=== PATIENT | male | born 1945 | race American Indian/Alaskan Native ===

== ENCOUNTER 2017-01-15 06:22 | Inpatient (IN) | payer MEDICARE, OTHER ==
[2017-01-12 08:49] VITALS: BMI 32.3
[2017-01-15] MEDS ORDERED: Propofol 10 mg/ml Inj (20 ML) ONE (07:39)
[2017-01-15] MEDS ORDERED: Midazolam 2 MG/2 ML VIAL ONE (07:39)
[2017-01-15] MEDS ORDERED: Dexamethasone 4 mg/1 ml ONE (07:44)
[2017-01-15] MEDS ORDERED: ceFAZolin IV 2 gm in Dextrose 50 ML IVPB ONE (07:45)
[2017-01-15] MEDS ORDERED: ceFAZolin 1 gm FROZEN Premix 0 ML IVPB ONE (07:45)
[2017-01-15] MEDS: Bupivacaine HCl 0.5% PF (10 ml) Inj ONE ×3 (08:46→11:59)
[2017-01-15] MEDS ORDERED: Rocuronium 10 mg/ml (5 ml) ONE (09:09)
[2017-01-15] MEDS: HYDROmorphone 0.5 mg/0.5 ml ISec IVP PRN ×2 (11:45→12:45)
--- NOTE | 2017-01-15 12:26 | PCM.SURG1 ---
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 Triple arthrodesis, right foot Specimen/Specimens Removed: None Estimated Blood Loss: EBL {In ML}: 30 Blood Products Given: N/A Drains Used: No Drains Post-Op Condition: Good Date of Surgery/Procedure: 01/15/17 Time of Surgery/Procedure: 07:30
[2017-01-15] MEDS ORDERED: Bupivacaine HCl 0.5% PF (10 ml) Inj ONE ×2 (12:34)
[2017-01-15] MEDS ORDERED: Lactated Ringer's 1,000 ML IV ONE ×3 (12:35→12:50)
--- NOTE | 2017-01-15 12:41 | CP.PCM.PN ---
Subjective - Date & Time of Evaluation Date of Evaluation: 01/15/17 Time of Evaluation: 07:30 - Subjective Subjective: 71 y/o male presents to [facility] for surgical intervention of painful right flatfoot and equinus. Patient has exhausted all conservative treatment and is now requesting surgical intervention. Patient denies any nausea, vomiting, fever and chills. Objective - Vital Signs/Intake and Output Vital Signs (last 24 hours): Temp Pulse Resp BP Pulse Ox 97.8 F 75 20 147/85 99 01/15/17 07:45 01/15/17 07:45 01/15/17 07:45 01/15/17 07:45 01/15/17 07:45 Intake and Output: 01/15/17 01/15/17 06:59 18:59 Intake Total 2049 Balance 2049 - Medications Medications: Current Medications Hydromorphone HCl (Dilaudid) 0.5 mg IVP Q10M PRN PRN Reason: Pain, moderate (4-7) Stop: 01/15/17 14:31 - Additional Findings Additional findings: RLE Vascular: DP and PT pulses palpable 2/4. CT < 3 seconds to all distal digits. Skin temperature is warm to warm from proximal to distal. Pedal hair growth noted to all digits. No erythema noted. Edema noted to dorsal aspect of dorsal aspect of fourth DIPJ. Neuro: Pain sensation intact. Protective sensation intact. Negative Tinels. Derm: No open lesions noted. Hyerkeratotic lesion noted sub 1st metatarsal and sub second metatarsal. Biomech/Musc: Patient presents with rectus shoulders and hips. Patient presents with early heel off and overpronation noted throughout stance to RLE. Early heel off noted to RLE. Ankle joint dorsiflexion is decreased (<5 degrees) with knee extended and increased with knee flexed, consistent with gastrocnemius equinus. No medial longitudinal arch is noted and is not recreated with Hubscher manuever. Eversion of heel is noted with weight bearing with RSCP 8 degrees everted and NCSP 6 degrees everted. Medial talar bulge noted with the forefoot abducted on the rearfoot. STJ ROM is decreased 14:6, Inversion:Eversion with pain. MTJ ROM is decreased with pain. Pain with palpation of posterior tibial tendon from the level of the ankle joint to the insertion at the navicular tuberosity. Patient is unable to perform single heel rise test to right lower extremity. Assessment and Plan - Assessment and Plan (Free Text) Assessment: 71 y/o male presents to [facility] for surgical intervention of painful equinus and pes planus, right Pt was seen and examined in [facility]. Biomechanical performed. Pt NPO status was confirmed. All Pre-op testing and clearance was in the chart. Pt has exhausted all conservative treatment at this time and is opting for surgical intervention. Pt was explained procedure and post-operative course. All pt's questions were answered to satisfaction. No guarantees were made. Pt understands all risks, benefits and complications of procedure. Pt will follow-up with Dr. Lott
--- NOTE | 2017-01-15 13:30 | PCM.ANESB2 ---
Popliteal Nerve Block - Popliteal Nerve Block Date of Procedure: 01/15/17 Anesthesiologist: Shawn Pre-Procedure Diagnosis: s/p right foot sx Procedure Performed: Popliteal Nerve Block Right - Procedure Popliteal Nerve Block: This procedure was explained to the patient that it is for post-operative pain management. Consent was obtained both preoperatively and postoperatively after a thorough discussion with the patient regarding the benefits and possible complications of local anesthetic block of the sciatic nerve at the popliteal level and adductor canal block with fire protection designer. The patient was brought to the recovery area and standard monitors are applied. After applying oxygen by nasal cannula and administering IV Sedation, patient's operative leg was gently raised and supported and the groove in between the biceps femoris and vastus lateralis muscles was carefully palpated. T The ultrasound transducer was then applied to the posterior thigh approximately 8cm above the popliteal crease in the transverse plane and the sciatic nerve before its division was visualized lateral to the popliteal artery and in between the bicep femoris and semimembranosus/semitendinosus muscles. After identification, the lateral portion of the thigh was prepped with chloraprep. At this point, a # 21 gauge Stimuplex insulated 4 inch needle was inserted in a perpendicular direction. The needle was inserted above the ultrasound transducer in-plane towards the sciatic nerve in a [id number] direction. Needle advancement was performed carefully under direct ultrasound visualization. After repeated negative aspiration, 18 cc of 0.5 % _bupivacaine_ _ was injected under ultrasound guidance the local anesthetics were observed tenting the epidural sheath and surrounding the roots of the sciatic nerve. The needle was removed intact. The patient tolerated the popliteal nerve block well with stable vital signs. We then proceeded to perform right adductor canal block. The right lower extremity was externally rotated with assistance of patient. Ultrasound probe was applied to medial thigh to identify saphenous nerve path in adductor canal at junction of sartorius muscle and femoral artery. The anteromedial thigh was prepped with chloraprep. 21g 4 inch needle was inserted under ultrasound guidance into adductor canal. 10 cc 0.5% bupivacaine was injected into canal under ultrasound guidance with repeated negative aspiration. The patient tolerated the procedure well with good pain relief confirmed with fire protection designer.
--- NOTE | 2017-01-15 14:13 | RAD ---
PROCEDURE: Right Foot Radiographs. HISTORY: s/p right foot exam COMPARISON: . No prior right foot x-rays are available a prior low left foot labeled postop studies are noted from 04/30/2016 FINDINGS: BONES: There are 2 screws placed in navicular. There are 2 screws placed in the distal talus. The navicular and talus are transfixed with a thong interlocking these 2 separate screw sites. There are 2 screws in the lateral cuneiform and 2 screws in the cuboid. A similar interlocking thong transfixing the 2 separate screw sites are present. At the hindfoot, medial and lateral metallic electronic appearing device is present. A medial and lateral flanking pressure wound drain with thin posterior draining tube is in place on the lateral view at the lower leg level JOINTS: Postop changes SOFT TISSUES: Normal. OTHER FINDINGS: Pes planus and a collapsed midfoot lateral view is suggested IMPRESSION: Status post right arthrodesis as above
--- NOTE | 2017-01-15 18:49 | CP.PCM.PN ---
Subjective - Date & Time of Evaluation Date of Evaluation: 01/15/17 Time of Evaluation: 18:35 - Subjective Subjective: right barefoot and equines pain Objective - Vital Signs/Intake and Output Vital Signs (last 24 hours): Temp Pulse Resp BP Pulse Ox 97.6 F 86 20 145/81 98 01/15/17 17:13 01/15/17 17:13 01/15/17 17:13 01/15/17 17:13 01/15/17 17:13 Intake and Output: 01/15/17 01/15/17 06:59 18:59 Intake Total 3050 Output Total 100 Balance 2950 - Constitutional Appears: Well - Head Exam Head Exam: ATRAUMATIC, NORMAL INSPECTION, NORMOCEPHALIC - Eye Exam Eye Exam: EOMI, Normal appearance, PERRL Pupil Exam: NORMAL ACCOMODATION, PERRL - ENT Exam ENT Exam: Mucous Membranes Moist, Normal Exam - Neck Exam Neck Exam: Full ROM, Normal Inspection. absent: Lymphadenopathy - Respiratory Exam Respiratory Exam: Decreased Breath Sounds - Cardiovascular Exam Cardiovascular Exam: REGULAR RHYTHM, +S1, +S2 - GI/Abdominal Exam GI & Abdominal Exam: Soft, Diminished Bowel Sounds - Rectal Exam Rectal Exam: Deferred Assessment and Plan - Assessment and Plan (Free Text) Plan: Sx consultation with Dr. Odell follow preop instructions
--- NOTE | 2017-01-16 07:21 | CP.PCM.PN ---
Subjective - Date & Time of Evaluation Date of Evaluation: 01/16/17 Time of Evaluation: 10:00 - Subjective Subjective: Dr. Ortiz service: Patient seen and examined in room. Patient is def but has family member present in room who is helping to translate questions. He has no complaints of pain, shortness of breath, chest pain, or palpitations. He says his pain is better than when he had surgery last year on his left leg. Objective - Vital Signs/Intake and Output Vital Signs (last 24 hours): Temp Pulse Resp BP Pulse Ox 98.2 F 81 20 117/72 96 01/15/17 23:40 01/15/17 23:40 01/15/17 23:40 01/15/17 23:40 01/15/17 23:40 Intake and Output: 01/16/17 01/16/17 06:59 18:59 Intake Total 570 Output Total 900 Balance -330 - Medications Medications: Current Medications Amlodipine Besylate (Norvasc) 10 mg PO DAILY [facility] Amlodipine Besylate (Norvasc) 10 mg PO DAILY [facility] Home Med (Hydrochlorothiazide [Hctz]) 25 tab PO DAILY [facility] Hydrochlorothiazide (Hydrodiuril) 25 mg PO DAILY [facility] Losartan Potassium (Cozaar) 100 mg PO DAILY [facility] - Constitutional Appears: Non-toxic, No Acute Distress - Head Exam Head Exam: NORMAL INSPECTION - Eye Exam Eye Exam: Normal appearance - Respiratory Exam Respiratory Exam: Clear to Ausculation Bilateral, NORMAL BREATHING PATTERN. absent: Rales, Rhonchi, Wheezes - Cardiovascular Exam Cardiovascular Exam: REGULAR RHYTHM, RRR, +S1, +S2. absent: Gallop, Rubs - GI/Abdominal Exam GI & Abdominal Exam: Soft, Normal Bowel Sounds. absent: Tenderness - Extremities Exam Extremities Exam: absent: Pedal Edema Additional comments: dressing on right leg noted - Psychiatric Exam Psychiatric exam: Normal Affect, Normal Mood Assessment and Plan - Assessment and Plan (Free Text) Assessment: 1. Post op day 1, per physical therapy, patient unable to use crutches or walker, will leave script for walker in room 2. HTN, chronic, continue his current htn medication 3. Prophylaxis. 40mg Protonix, and 5000 units of Hep SC q12h start tomorrow.
--- NOTE | 2017-01-16 08:36 | CP.PCM.PN ---
Subjective - Date & Time of Evaluation Date of Evaluation: 01/16/17 Time of Evaluation: 08:32 - Subjective Subjective: 71 y/o male s/p right foot triple arthrodesis. 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 Patient signals he is in no pain at this time and is feeling well. No acute events noted. patient was admitted for post op pain evaluation and observation. Objective - Vital Signs/Intake and Output Vital Signs (last 24 hours): Temp Pulse Resp BP Pulse Ox 101.8 F H 71 20 135/79 96 01/16/17 08:01 01/16/17 08:15 01/16/17 08:01 01/16/17 08:01 01/16/17 08:01 Intake and Output: 01/16/17 01/16/17 06:59 18:59 Intake Total 570 Output Total 900 Balance -330 - Medications Medications: Current Medications Amlodipine Besylate (Norvasc) 10 mg PO DAILY [facility] Hydrochlorothiazide (Hydrodiuril) 25 mg PO DAILY [facility] Cefazolin Sodium/Dextrose (Ancef Iv 1 Gm Duplex) 50 mls @ 100 mls/hr IVPB Q8H [facility] Losartan Potassium (Cozaar) 100 mg PO DAILY [facility] - Constitutional Appears: Well, Non-toxic, No Acute Distress - Neurological Exam Neurological Exam: Alert, Awake, Oriented x3 - Psychiatric Exam Psychiatric exam: Normal Affect, Normal Mood - Skin Skin Exam: Normal Color, Warm - Additional Findings Additional findings: Vascular status intact to all digits. Patient able to wiggle digits; cannot feel due to block. Assessment and Plan - Assessment and Plan (Free Text) Assessment: 71 y/o male seen and evaluated 1 day s/p right foot triple arthrodesis. Plan: Patient evaluated and chart reviewed Discussed with Dr. Lott At this time restarted 1 g Ancef q8h while patient is admitted. Patient pain is well controlled at this time. Percocet 5/325 rx placed into chart. Patient is stable from podiatry standpoint for d/c. Patient has f/u appt scheduled for January 26 w/ Dr. Lott Patient to be NWB to the RLE with crutch assistance.
[2017-01-16] MEDS: ceFAZolin IV 1 gm in Dextrose 50 ML IVPB SCH ×2 (09:36→17:19)
[2017-01-16] MEDS ORDERED: HYDROCHLOROTHIAZIDE PO SCH (10:00)
[2017-01-16] MEDS ORDERED: Alum-Mag Hydrox-Simethicone Susp (30 mL) PO STA (12:45)
--- NOTE | 2017-01-16 13:27 | CP.PCM.PN ---
Subjective - Date & Time of Evaluation Date of Evaluation: 01/16/17 Time of Evaluation: 09:40 - Subjective Subjective: pain significantly improved after Sx Objective - Vital Signs/Intake and Output Vital Signs (last 24 hours): Temp Pulse Resp BP Pulse Ox 98.8 F 78 20 127/80 96 01/16/17 09:35 01/16/17 12:45 01/16/17 08:01 01/16/17 09:35 01/16/17 11:40 Intake and Output: 01/16/17 01/16/17 06:59 18:59 Intake Total 570 Output Total 900 Balance -330 - Medications Medications: Current Medications Amlodipine Besylate (Norvasc) 10 mg PO DAILY [facility] Last Admin: 01/16/17 09:37 Dose: 10 mg Hydrochlorothiazide (Hydrodiuril) 25 mg PO DAILY [facility] Last Admin: 01/16/17 09:36 Dose: 25 mg Cefazolin Sodium/Dextrose (Ancef Iv 1 Gm Duplex) 50 mls @ 100 mls/hr IVPB Q8H [facility] Last Admin: 01/16/17 09:36 Dose: 100 mls/hr Losartan Potassium (Cozaar) 100 mg PO DAILY [facility] Last Admin: 01/16/17 09:36 Dose: 100 mg - Constitutional Appears: Well - Head Exam Head Exam: ATRAUMATIC, NORMAL INSPECTION, NORMOCEPHALIC - Eye Exam Eye Exam: EOMI, Normal appearance, PERRL Pupil Exam: NORMAL ACCOMODATION, PERRL - ENT Exam ENT Exam: Mucous Membranes Moist, Normal Exam - Neck Exam Neck Exam: Full ROM, Normal Inspection. absent: Lymphadenopathy - Respiratory Exam Respiratory Exam: Decreased Breath Sounds - Cardiovascular Exam Cardiovascular Exam: REGULAR RHYTHM, +S1, +S2 - GI/Abdominal Exam GI & Abdominal Exam: Soft, Diminished Bowel Sounds - Rectal Exam Rectal Exam: Deferred Assessment and Plan - Assessment and Plan (Free Text) Plan: pt. tolerated Sx well training for using crutches f/u with Dr. Jeffery
[2017-01-16] MEDS: Pantoprazole 40 mg EC Tab PO SCH (14:48)
--- NOTE | 2017-01-16 19:06 | OP ---
PROCEDURE DATE: 01/15/2017 SURGEON: Anibal Jeffery DPM ROADS SUPERINTENDENT: Peg Cooper, PGY-3 SECOND ROADS SUPERINTENDENT: Star, PGY-1 ANESTHESIA: General anesthesia with popliteal block. PREOPERATIVE DIAGNOSES: 1. Gastrocnemius equinus, right foot. 2. Rearfoot arthritis, right foot. 3. Posterior tibial tendon dysfunction, right foot with pes planus. POSTOPERATIVE DIAGNOSES: 1. Gastrocnemius equinus, right foot. 2. Rearfoot arthritis, right foot. 3. Posterior tibial tendon dysfunction, right foot with pes planus. PROCEDURE: 1. Gastrocnemius recession, right. 2. Triple arthrodesis, right foot utilizing plates and screws. INDICATIONS: The patient is a 71-year-old male with the above-mentioned diagnoses. The patient has exhausted all conservative treatment at this time and is now requesting surgical intervention. The patient signed the consent after careful explanation of all risks, benefits, complications and alternatives for the surgical procedure. No guarantees were given nor implied. It is to be noted that while taking consent a rubber worker for sign language was used and the supervisor engine assembly number was noted in the patient's chart. PREPARATION: The patient was brought into the operating room and placed on the operating room table in the supine position. A well-padded thigh tourniquet was applied to the patient's right thigh. After induction of general anesthesia , the patient's right lower extremity was then prepped and draped in the usual sterile manner. At this time, the patient's right lower extremity was exsanguinated with Esmarch and the pneumatic thigh tourniquet was inflated to 350 mmHg and the procedure began. PROCEDURE #1: Endoscopic gastrocnemius recession, right. Attention was then directed to the medial aspect of the patient's right lower calf where the gastroc aponeurosis was palpated. Utilizing a #15 blade, a 2 cm linear longitudinal incision was created on the medial aspect of the patient's calf muscle at the level of the gastroc aponeurosis. The incision was deepened through subcutaneous tissues utilizing sharp and blunt dissection. All bleeders were cauterized and ligated as necessary. Next, an elevator was passed through the posterior aspect of the patient's calf palpating the aponeurosis of the gastrocnemius. Next, the Arthrex camera with blade were passed through the surgical site and the gastrocnemius aponeurosis was inspected and the sural nerve was identified. At this time with the foot held in maximal dorsiflexion, the blade was engaged with care being taken to not transect the patient's sural nerve. The entire aponeurosis itself was released and the soleus muscle was identified throughout showing that the cut had been through only the aponeurosis. The camera and blade were then removed. The incision was flushed with copious amounts of normal sterile saline and the skin was reapproximated and coapted utilizing 4-0 Prolene. PROCEDURE #2: Triple arthrodesis, right foot. At this time, attention was directed to the medial aspect of the patient's right foot. Utilizing a #15 blade, a 4 cm curvilinear incision was created overlying the talonavicular joint. The incision was deepened through subcutaneous tissue with care being taken to identify and retract all vital neurovascular structures. All bleeders were cauterized and ligated as necessary. At this time, the capsule surrounding the talonavicular joint was noted to be extremely hypertrophic as was the periosteum along with calcification throughout the capsule. Utilizing a #15 blade, an incision was created overlying the joint in the same attitude as the skin incision using sharp and blunt dissection. The periosteal tissue was sharply freed of its osseous attachments and reflected medially and laterally, exposing the talonavicular joint into the operative site. Next, utilizing a sagittal saw, the articular cartilage from the talonavicular head was resected and passed from the operative field. Attention was then directed to the navicular where utilizing a sagittal saw, the proximal articular cartilage was resected in a parallel fashion to the talus to allow for a flush fit. All resected bone was passed from the operative field. The area was then flushed with copious amounts of normal sterile saline. Attention was then directed to the lateral aspect of the patient's right foot where utilizing a #15 blade, a 6 cm linear longitudinal incision was created just distal and posterior to the fibula and extending distally to the patient's calcaneocuboid joint. The incision was deepened through subcutaneous tissue with care being taken to identify and retract all vital neurovascular structures. All bleeders were cauterized and ligated as necessary. Attention was directed to the patient's calcaneocuboid joint where utilizing a #15 blade, all periosteal tissue was sharply reflected free of the osseous attachments and reflected medially and laterally, exposing the calcaneocuboid joint into the operative field. It is to be noted that only about 20% of the articular cartilage on the calcaneus at the calcaneocuboid joint was present and there was hypertrophic bone noted to the medial aspect of the calcaneocuboid joint. Utilizing a sagittal saw, the articular cartilage from the cuboid as well as from the calcaneus was reflected in a fashion parallel to one another. All bone was then removed and it was verified that the bones then sat flush with one another. At this time, attention was then directed to the subtalar joint. Utilizing a #15 blade, the extensor digitorum brevis muscle belly was carefully reflected anteriorly to allow for better visualization of the subtalar joint itself. Also, the CFL ligament was transected to allow for better visualization of the posterior facet of the subtalar joint. Utilizing a rongeur , all the contents of the subtalar joint were evacuated. Next, a small lamina student life advisor was introduced into the posterior aspect of the subtalar joint to allow for better visualization of the cartilage. Next, utilizing osteotomes and electronic bur and curets, all articular cartilage from both the calcaneal and talar components of the subtalar joint was resected until subchondral bone was noted. All incision sites were then flushed with copious amounts of normal sterile saline. At this time, the foot was manipulated so that it sat in a more corrected position and the proper positioning was verified under fluoroscopy. Next, attention was directed to the anterior medial aspect of the patient's talar neck. A small stab incision was created overlying the medial dorsal aspect of the patient's talar neck. Utilizing a guidewire from the [employer] cannulated screw set, a guidewire was thrown from anterior medial to plantar lateral across the subtalar joint. Next, the cannulated screw was placed across the subtalar joint with excellent compression noted. The guidewire was then removed. Attention was then directed to the calcaneocuboid joint where a compression plate was placed across the calcaneocuboid joint with 2 screws in the calcaneus and 2 screws in the lateral aspect of the cuboid. Attention was then directed to the medial aspect of the patient's foot where a compression plate was placed across the patient's talonavicular joint with 2 screws in the navicular and 2 screws in the talus with excellent compression noted. Final x-rays were taken to confirm proper placement of the screws and the plate in the patient's rearfoot as well as proper positioning of the foot itself. All incision sites were then flushed with copious amounts of normal sterile saline. All the deep tissue was reapproximated and coapted utilizing 2- 0 and 3-0 Vicryl, subcutaneous tissue was reapproximated and coapted utilizing 4 -0 Vicryl, and the skin was reapproximated and coapted utilizing 4-0 Prolene in a simple suture technique. All incision sites were then dressed with Betadine-soaked Adaptic and DSD. The patient was placed in a well-padded posterior splint. POSTOPERATIVE CONDITION: The patient tolerated the procedure and anesthesia well and was escorted to recovery with all vital signs stable and neurovascular status intact to the patient's right lower extremity. It is to be noted that the patient will stay at [facility] for 23-hour observation and will be followed by the podiatry service. The patient will be nonweightbearing with a posterior splint and crutches. Upon discharge, the patient will follow up with Dr. Jeffery in his office. Peg Cooper DPM Anibal Jeffery DPM cc: [id number] TT: 01/16/2017 19:05:08 [email or web address] [id number]
[2017-01-16 19:43] LABS: BASO % 0.2 % (0.0-2.0); EOS % 0.2 % (0.0-4.0); HEMATOCRIT 34.7 % (35.0-51.0); LYMPH # 1.2 K/uL (1.0-4.3); LYMPH % 14.7 % (20.0-40.0); MEAN CELL VOLUME 81.5 fL (80.0-94.0); MEAN CORPUSCULAR HEMOGLOBIN 27.1 pg (27.0-31.0); MEAN CORPUSCULAR HGB CONC 33.2 g/dL (33.0-37.0); MEAN PLATELET VOLUME 7.9 fL (7.2-11.7); MONO # 1.2 K/uL (0.0-0.8); MONO % 14.4 % (0.0-10.0); RED CELL DISTRIBUTION WIDTH 14.9 % (11.5-14.5)
[2017-01-16 19:45] LABS: WHITE BLOOD COUNT 8.1 K/uL (4.8-10.8)
[2017-01-16 19:52] LABS: POTASSIUM 3.7 mmol/L (3.6-5.2)
[2017-01-16 19:54] LABS: ALB/GLOB RATIO 1.2 (1.0-2.1); BILIRUBIN,TOTAL 0.8 mg/dL (0.2-1.3)
[2017-01-16 19:55] LABS: CALCIUM 8.6 mg/dl (8.6-10.4); MAGNESIUM 1.9 mg/dL (1.6-2.3); PHOSPHOROUS 2.9 mg/dL (2.5-4.5)
[2017-01-17] MEDS: ceFAZolin IV 1 gm in Dextrose 50 ML IVPB SCH ×3 (01:10→17:30)
[2017-01-17 06:56] LABS: POTASSIUM 3.5 mmol/L (3.6-5.2)
[2017-01-17 06:58] LABS: ALB/GLOB RATIO 1.2 (1.0-2.1); BILIRUBIN,TOTAL 1.2 mg/dL (0.2-1.3); TOTAL PROTEIN 7.1 g/dL (6.3-8.3)
[2017-01-17 06:59] LABS: CALCIUM 8.7 mg/dl (8.6-10.4); MAGNESIUM 2.1 mg/dL (1.6-2.3); PHOSPHOROUS 3.3 mg/dL (2.5-4.5)
[2017-01-17 07:12] LABS: BASO % 0.3 % (0.0-2.0); EOS % 0.4 % (0.0-4.0); HEMATOCRIT 35.3 % (35.0-51.0); LYMPH # 1.6 K/uL (1.0-4.3); LYMPH % 17.3 % (20.0-40.0); MEAN CELL VOLUME 82.2 fL (80.0-94.0); MEAN CORPUSCULAR HGB CONC 32.9 g/dL (33.0-37.0); MEAN PLATELET VOLUME 8.2 fL (7.2-11.7); MONO # 1.3 K/uL (0.0-0.8); MONO % 13.6 % (0.0-10.0); RED CELL DISTRIBUTION WIDTH 14.8 % (11.5-14.5); WHITE BLOOD COUNT 9.4 K/uL (4.8-10.8)
[2017-01-17] MEDS: Pantoprazole 40 mg EC Tab PO SCH (09:09)
--- NOTE | 2017-01-17 10:23 | CP.PCM.PN ---
Subjective - Date & Time of Evaluation Date of Evaluation: 01/17/17 Time of Evaluation: 09:40 - Subjective Subjective: clinically same Objective - Vital Signs/Intake and Output Vital Signs (last 24 hours): Temp Pulse Resp BP Pulse Ox 98.1 F 86 18 123/85 95 01/17/17 08:22 01/17/17 08:22 01/17/17 08:22 01/17/17 08:22 01/17/17 08:22 Intake and Output: 01/17/17 01/17/17 06:59 18:59 Intake Total 200 Output Total 1200 Balance -1000 - Medications Medications: Current Medications Amlodipine Besylate (Norvasc) 10 mg PO DAILY [facility] Last Admin: 01/17/17 09:09 Dose: 10 mg Docusate Sodium (Colace) 100 mg PO BID [facility] Last Admin: 01/17/17 09:09 Dose: 100 mg Heparin Sodium (Porcine) (Heparin) 5,000 units SC Q8 [facility] Last Admin: 01/17/17 05:20 Dose: 5,000 units Hydrochlorothiazide (Hydrodiuril) 25 mg PO DAILY [facility] Last Admin: 01/17/17 09:09 Dose: 25 mg Cefazolin Sodium/Dextrose (Ancef Iv 1 Gm Duplex) 50 mls @ 100 mls/hr IVPB Q8H [facility] Last Admin: 01/17/17 09:06 Dose: 100 mls/hr Losartan Potassium (Cozaar) 100 mg PO DAILY [facility] Last Admin: 01/17/17 09:09 Dose: 100 mg Pantoprazole Sodium (Protonix Ec Tab) 40 mg PO DAILY [facility] Last Admin: 01/17/17 09:09 Dose: 40 mg - Labs Labs: 01/17/17 06:28 01/17/17 06:28 - Constitutional Appears: Well - Head Exam Head Exam: ATRAUMATIC, NORMAL INSPECTION, NORMOCEPHALIC - Eye Exam Eye Exam: EOMI, Normal appearance, PERRL Pupil Exam: NORMAL ACCOMODATION, PERRL - ENT Exam ENT Exam: Mucous Membranes Moist, Normal Exam - Neck Exam Neck Exam: Full ROM, Normal Inspection. 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 Lott S/P right foot triple arthrodesis Continue porcine Antibiotics Cozaar
--- NOTE | 2017-01-17 12:07 | CP.PCM.PN ---
Subjective - Date & Time of Evaluation Date of Evaluation: 01/17/17 Time of Evaluation: 12:05 - Subjective Subjective: 71 y/o male 2 days s/p right foot triple arthrodesis. Patient is deaf but examined at bedside and can read lips minimally, interpretation was used at the time of visit. Patient signals he is in no pain at this time and is feeling well. No acute events noted. patient was admitted for post op pain evaluation and observation. Patient states that he had physical therapy yesterday but he felt very weak so he could not really walk. Patient states he will try again today. Objective - Vital Signs/Intake and Output Vital Signs (last 24 hours): Temp Pulse Resp BP Pulse Ox 98.1 F 86 18 123/85 95 01/17/17 08:22 01/17/17 08:22 01/17/17 08:22 01/17/17 08:22 01/17/17 08:22 Intake and Output: 01/17/17 01/17/17 06:59 18:59 Intake Total 200 Output Total 1200 Balance -1000 - Medications Medications: Current Medications Amlodipine Besylate (Norvasc) 10 mg PO DAILY [facility] Last Admin: 01/17/17 09:09 Dose: 10 mg Docusate Sodium (Colace) 100 mg PO BID [facility] Last Admin: 01/17/17 09:09 Dose: 100 mg Heparin Sodium (Porcine) (Heparin) 5,000 units SC Q8 [facility] Last Admin: 01/17/17 05:20 Dose: 5,000 units Hydrochlorothiazide (Hydrodiuril) 25 mg PO DAILY [facility] Last Admin: 01/17/17 09:09 Dose: 25 mg Cefazolin Sodium/Dextrose (Ancef Iv 1 Gm Duplex) 50 mls @ 100 mls/hr IVPB Q8H [facility] Last Admin: 01/17/17 09:06 Dose: 100 mls/hr Losartan Potassium (Cozaar) 100 mg PO DAILY [facility] Last Admin: 01/17/17 09:09 Dose: 100 mg Pantoprazole Sodium (Protonix Ec Tab) 40 mg PO DAILY [facility] Last Admin: 01/17/17 09:09 Dose: 40 mg - Labs Labs: 01/17/17 06:28 01/17/17 06:28 - Constitutional Appears: Well, Non-toxic, No Acute Distress - Extremities Exam Additional comments: Vascular status intact to all digits. Patient able to wiggle digits; - Neurological Exam Neurological Exam: Alert, Awake, Oriented x3 - Psychiatric Exam Psychiatric exam: Normal Affect, Normal Mood Assessment and Plan - Assessment and Plan (Free Text) Assessment: 71 y/o male seen and evaluated 2 day s/p right foot triple arthrodesis. Plan: Patient evaluated and chart reviewed Discussed with Dr. Lott At this time restarted 1 g Ancef q8h while patient is admitted. Patient pain is well controlled at this time. Percocet 5/325 rx placed into chart. Patient is stable from podiatry standpoint for d/c. Patient has f/u appt scheduled for January 26 w/ Dr. Lott Patient to be NWB to the [place] with crutch assistance.
[2017-01-17] MEDS ORDERED: Potassium Chloride 20 mEq ER Tab PO STA (15:50)
[2017-01-18] MEDS: ceFAZolin IV 1 gm in Dextrose 50 ML IVPB SCH ×3 (00:17→17:27)
--- NOTE | 2017-01-18 09:34 | CP.PCM.PN ---
Subjective - Date & Time of Evaluation Date of Evaluation: 01/18/17 Time of Evaluation: 09:15 - Subjective Subjective: pain is well controlled feels weakness Objective - Vital Signs/Intake and Output Vital Signs (last 24 hours): Temp Pulse Resp BP Pulse Ox 98.2 F 75 18 113/76 95 01/18/17 08:38 01/18/17 08:38 01/18/17 08:38 01/18/17 08:38 01/18/17 08:38 Intake and Output: 01/18/17 01/18/17 06:59 18:59 Output Total 600 Balance -600 - Medications Medications: Current Medications Amlodipine Besylate (Norvasc) 10 mg PO DAILY [facility] Last Admin: 01/17/17 09:09 Dose: 10 mg Docusate Sodium (Colace) 100 mg PO BID [facility] Last Admin: 01/17/17 18:14 Dose: 100 mg Heparin Sodium (Porcine) (Heparin) 5,000 units SC Q8 [facility] Last Admin: 01/18/17 06:13 Dose: 5,000 units Hydrochlorothiazide (Hydrodiuril) 25 mg PO DAILY [facility] Last Admin: 01/17/17 09:09 Dose: 25 mg Cefazolin Sodium/Dextrose (Ancef Iv 1 Gm Duplex) 50 mls @ 100 mls/hr IVPB Q8H [facility] Last Admin: 01/18/17 00:17 Dose: 100 mls/hr Losartan Potassium (Cozaar) 100 mg PO DAILY [facility] Last Admin: 01/17/17 09:09 Dose: 100 mg Pantoprazole Sodium (Protonix Ec Tab) 40 mg PO DAILY [facility] Last Admin: 01/17/17 09:09 Dose: 40 mg - Labs Labs: 01/17/17 06:28 01/17/17 06:28 Assessment and Plan (1) DVT prophylaxis Status: Acute (2) Deafness congenital Status: Acute (3) Debility, unspecified Status: Acute (4) Hypertension Status: Acute (5) Pain aggravated by activities of daily living Status: Acute (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
[2017-01-18] MEDS: Pantoprazole 40 mg EC Tab PO SCH (10:26)
--- NOTE | 2017-01-18 13:05 | CP.PCM.PN ---
Subjective - Date & Time of Evaluation Date of Evaluation: 01/18/17 Time of Evaluation: 13:01 - Subjective Subjective: 71 y/o male 3 days s/p right foot triple arthrodesis. 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 Patient signals he is in no pain at this time and is feeling well. No acute events noted. patient was admitted for post op pain evaluation and observation. denies n/f/v/c/d/sob. Objective - Vital Signs/Intake and Output Vital Signs (last 24 hours): Temp Pulse Resp BP Pulse Ox 98.2 F 75 18 113/76 95 01/18/17 08:38 01/18/17 08:38 01/18/17 08:38 01/18/17 08:38 01/18/17 08:38 Intake and Output: 01/18/17 01/18/17 06:59 18:59 Output Total 600 Balance -600 - Medications Medications: Current Medications Amlodipine Besylate (Norvasc) 10 mg PO DAILY [facility] Last Admin: 01/18/17 10:26 Dose: 10 mg Docusate Sodium (Colace) 100 mg PO BID [facility] Last Admin: 01/18/17 10:25 Dose: 100 mg Heparin Sodium (Porcine) (Heparin) 5,000 units SC Q8 [facility] Last Admin: 01/18/17 06:13 Dose: 5,000 units Hydrochlorothiazide (Hydrodiuril) 25 mg PO DAILY [facility] Last Admin: 01/18/17 10:25 Dose: 25 mg Cefazolin Sodium/Dextrose (Ancef Iv 1 Gm Duplex) 50 mls @ 100 mls/hr IVPB Q8H [facility] Last Admin: 01/18/17 09:00 Dose: 100 mls/hr Losartan Potassium (Cozaar) 100 mg PO DAILY [facility] Last Admin: 01/18/17 10:26 Dose: 100 mg Pantoprazole Sodium (Protonix Ec Tab) 40 mg PO DAILY [facility] Last Admin: 01/18/17 10:26 Dose: 40 mg - Labs Labs: 01/17/17 06:28 01/17/17 06:28 - Constitutional Appears: Well, Non-toxic, No Acute Distress - Extremities Exam Additional comments: Vascular status intact to all digits. Patient able to wiggle digits; - Neurological Exam Neurological Exam: Alert, Awake, Oriented x3 - Psychiatric Exam Psychiatric exam: Normal Affect, Normal Mood Assessment and Plan - Assessment and Plan (Free Text) Assessment: 71 y/o male seen and evaluated 3 day s/p right foot triple arthrodesis. Plan: Patient evaluated and chart reviewed Discussed with Dr. Lott Patient pain is well controlled at this time. Percocet 5/325 rx placed into chart. Patient is stable from podiatry standpoint for d/c. Patient has f/u appt scheduled for January 26 w/ Dr. Lott Patient to be NWB to the [place] with crutch assistance.
[2017-01-19] MEDS: ceFAZolin IV 1 gm in Dextrose 50 ML IVPB SCH ×2 (00:08→10:47)
[2017-01-19 01:55] VITALS: PULSE 70
--- NOTE | 2017-01-19 07:21 | CP.PCM.PN ---
Subjective - Date & Time of Evaluation Date of Evaluation: 01/19/17 Time of Evaluation: 09:30 - Subjective Subjective: Dr. Ortiz service: Patient seen in room and evaluated. He says he has no pain, no fever, shortness of breath, abdominal pain, nausea, vomiting, or diarrhea. Objective - Vital Signs/Intake and Output Vital Signs (last 24 hours): Temp Pulse Resp BP Pulse Ox 99 F 70 20 106/68 95 01/18/17 23:35 01/18/17 23:35 01/18/17 23:35 01/18/17 23:35 01/18/17 23:35 Intake and Output: 01/19/17 01/19/17 06:59 18:59 Output Total 400 Balance -400 - Medications Medications: Current Medications Amlodipine Besylate (Norvasc) 10 mg PO DAILY [facility] Last Admin: 01/18/17 10:26 Dose: 10 mg Docusate Sodium (Colace) 100 mg PO BID [facility] Last Admin: 01/18/17 17:27 Dose: 100 mg Heparin Sodium (Porcine) (Heparin) 5,000 units SC Q8 [facility] Last Admin: 01/19/17 05:57 Dose: 5,000 units Hydrochlorothiazide (Hydrodiuril) 25 mg PO DAILY [facility] Last Admin: 01/18/17 10:25 Dose: 25 mg Cefazolin Sodium/Dextrose (Ancef Iv 1 Gm Duplex) 50 mls @ 100 mls/hr IVPB Q8H [facility] Last Admin: 01/19/17 00:08 Dose: 100 mls/hr Losartan Potassium (Cozaar) 100 mg PO DAILY [facility] Last Admin: 01/18/17 10:26 Dose: 100 mg Pantoprazole Sodium (Protonix Ec Tab) 40 mg PO DAILY [facility] Last Admin: 01/18/17 10:26 Dose: 40 mg - Labs Labs: 01/17/17 06:28 01/17/17 06:28 - Constitutional Appears: Non-toxic, No Acute Distress - Head Exam Head Exam: NORMAL INSPECTION - Eye Exam Eye Exam: Normal appearance - Respiratory Exam Respiratory Exam: Clear to Ausculation Bilateral. absent: Rhonchi, Wheezes - Cardiovascular Exam Cardiovascular Exam: REGULAR RHYTHM, RRR Assessment and Plan - Assessment and Plan (Free Text) Assessment: Patient discharged to [facility].
[2017-01-19 09:19] VITALS: BP 116/76; RESP 18; TEMP 98.3; O2SAT 96
[2017-01-19] MEDS: Pantoprazole 40 mg EC Tab PO SCH (09:24)
--- NOTE | 2017-01-19 13:10 | CP.PCM.PN ---
Subjective - Date & Time of Evaluation Date of Evaluation: 01/19/17 Time of Evaluation: 10:20 - Subjective Subjective: no pain Objective - Vital Signs/Intake and Output Vital Signs (last 24 hours): Temp Pulse Resp BP Pulse Ox 98.3 F 70 18 116/76 96 01/19/17 07:40 01/19/17 07:40 01/19/17 07:40 01/19/17 07:40 01/19/17 07:40 Intake and Output: 01/19/17 01/19/17 06:59 18:59 Output Total 400 Balance -400 - Medications Medications: Current Medications Amlodipine Besylate (Norvasc) 10 mg PO DAILY [facility] Last Admin: 01/19/17 09:24 Dose: 10 mg Docusate Sodium (Colace) 100 mg PO BID [facility] Last Admin: 01/19/17 09:24 Dose: 100 mg Heparin Sodium (Porcine) (Heparin) 5,000 units SC Q8 [facility] Last Admin: 01/19/17 05:57 Dose: 5,000 units Hydrochlorothiazide (Hydrodiuril) 25 mg PO DAILY [facility] Last Admin: 01/19/17 09:24 Dose: 25 mg Cefazolin Sodium/Dextrose (Ancef Iv 1 Gm Duplex) 50 mls @ 100 mls/hr IVPB Q8H [facility] Last Admin: 01/19/17 10:47 Dose: 100 mls/hr Losartan Potassium (Cozaar) 100 mg PO DAILY [facility] Last Admin: 01/19/17 09:24 Dose: 100 mg Pantoprazole Sodium (Protonix Ec Tab) 40 mg PO DAILY [facility] Last Admin: 01/19/17 09:24 Dose: 40 mg - Labs Labs: 01/17/17 06:28 01/17/17 06:28 - Constitutional Appears: Well - Head Exam Head Exam: ATRAUMATIC, NORMAL INSPECTION, NORMOCEPHALIC - Eye Exam Eye Exam: EOMI, Normal appearance, PERRL Pupil Exam: NORMAL ACCOMODATION, PERRL - ENT Exam ENT Exam: Mucous Membranes Moist, Normal Exam - Neck Exam Neck Exam: Full ROM, Normal Inspection. absent: Lymphadenopathy - Respiratory Exam Respiratory Exam: Decreased Breath Sounds - Cardiovascular Exam Cardiovascular Exam: REGULAR RHYTHM, +S1, +S2 - GI/Abdominal Exam GI & Abdominal Exam: Soft, Diminished Bowel Sounds - Rectal Exam Rectal Exam: Deferred Assessment and Plan - Assessment and Plan (Free Text) Plan: pt. is discharge to [facility] f/u with DR. Moon at outpatient
== END 2017-01-19 16:00 | disposition home or self-care (01) | DRG 502 ==
LOC: C.SDS 06:22 → UNDOADMOB 12:34 → C.6T 12:34 → OBSVTOIN 14:43 → INTOOBSV 14:43 → C.6T 01-17 01:57 → OBSVTOIN 01-17 14:43 → C.6T 01-17 14:43
PROVIDERS: ADMIT Internal Medicine Nephrology; ATTEND Internal Medicine Nephrology
PROC: 0LSN0ZZ Reposition Right Lower Leg Tendon, Open Approach (ICD-10-PCS; principal; 2017-01-17)
PROC: 0SGH04Z Fusion of Right Tarsal Joint with Internal Fixation Device, Open Approach (ICD-10-PCS; 2017-01-17)
PROC: 0SGH04Z Fusion of Right Tarsal Joint with Internal Fixation Device, Open Approach (ICD-10-PCS; 2017-01-17)
PROC: 0SGH04Z Fusion of Right Tarsal Joint with Internal Fixation Device, Open Approach (ICD-10-PCS; 2017-01-17)
DX: M21.41 Flat foot [pes planus] (acquired), right foot (principal); M62.89 Other specified disorders of muscle; M19.071 Primary osteoarthritis, right ankle and foot; G89.18 Other acute postprocedural pain; I10 Essential (primary) hypertension; H91.90 Unspecified hearing loss, unspecified ear